=== PATIENT | female | born 1975 | race Caucasian/White ===

== ENCOUNTER 2017-02-01 14:44 | Day surgery (SDC) | payer OTHER ==
[~2017-02-01] VITALS: Ht 162.6 cm; Wt 73.7 kg
--- NOTE | ~2017-02-01 | OR ---
PATIENT'S NAME: CAMRYN STEPHENSON [facility] AGE: 41 Y [address] ROOM: [place] [address] LOCATION: [facility] [place] ADMIT DATE: 02/01/2017 OR/Procedure Report DISCHARGE DATE: FAMILY PHYSICIAN: Tarun Redd ATTENDING PHYSICIAN: Jason Caban SURGEON: Jason Caban MD FISHER LAMPARA NET: Clinton Krishnan PA-C. DATE OF PROCEDURE: 02/01/2017 PREOPERATIVE DIAGNOSIS: Acute appendicitis. POSTOPERATIVE DIAGNOSIS: Acute appendicitis. PROCEDURE PERFORMED: Laparoscopic appendectomy. ANESTHESIA: General endotracheal. ESTIMATED BLOOD LOSS: Less than 5 mL. SPECIMEN: Appendix. REASON FOR PROCEDURE: The patient is a 41-year-old female, who presented with a two-day history of progressive right lower quadrant pain. She had a normal white count, but a CT scan suggested acute appendicitis. We discussed the risks and benefits, and she elected to proceed with appendectomy. FINDINGS: The patient did have a moderately swollen and somewhat injected appendix consistent with acute appendicitis. No perforation. PROCEDURE IN DETAIL: The patient was taken to the Operating Suite and placed in the supine position. After general endotracheal anesthesia was obtained, the abdomen was prepped with ChloraPrep and sterilely draped. Marcaine was infiltrated into the incision sites. A small infraumbilical incision was made in her previous scar. The umbilicus was elevated, and a Veress needle was used to obtain a pneumoperitoneum. A 5- mm trocar was then passed across the abdominal wall. Next, a 5-mm left lower quadrant and 12-mm right lower quadrant trocars were both placed under direct visualization. The appendix was swollen and inflamed. We had to mobilize some peritoneal attachments to free it up completely. The mesoappendix was divided with cautery. We did place a clip across the appendiceal artery. V-Loc clips were then placed across the base of the appendix, and the appendix was divided between them with scissors. The area around the cecum was irrigated, and all irrigation was removed. The trocars were withdrawn and the pneumoperitoneum was evacuated. PATIENT'S NAME: CAMRYN STEPHENSON [facility] AGE: 41 Y [address] ROOM: [place] [address] LOCATION: [facility] [place] ADMIT DATE: 02/01/2017 OR/Procedure Report DISCHARGE DATE: FAMILY PHYSICIAN: Tarun Redd ATTENDING PHYSICIAN: Jason Caban WOUND CLOSURE: The fascia in the right lower quadrant and at the umbilicus was closed with a Vicryl suture. The skin incisions were closed with subcuticular Monocryls. Benzoin, Steri-Strips, and gauze dressings were applied. POST-PROCEDURE PLAN: The patient will be sent to Recovery, and then up to the room. We will gradually advance her diet as tolerated. She will receive pain medicines as necessary. MD BERNARD CARRANZA/mark /[id number] d: 02/01/17 2239 t: 02/08/17 1428, OPERATIVE SUMMARY
--- NOTE | ~2017-02-01 | HP ---
PATIENT'S NAME: CAMRYN STEPHENSON [facility] AGE: 41 Y [address] ROOM: [place] [address] LOCATION: [facility] [place] ADMIT DATE: 02/01/2017 History & Physical DISCHARGE DATE: FAMILY PHYSICIAN: Tarun Redd ATTENDING PHYSICIAN: Jason Caban DATE OF SERVICE: 02/01/2017 CHIEF COMPLAINT: Right lower quadrant abdominal pain. HISTORY OF PRESENT ILLNESS: The patient is a 41-year-old female who began noticing some diffuse abdominal pain on Wednesday evening. It is more of a pressure type pain at that point. Since then, the pain has moved into the right lower quadrant and gotten somewhat worse over time. She has had no nausea or vomiting. She has had no change in bowel habits. She did feel fevers the other day, but did not have a fever earlier today. She finally got feeling severe enough that she went in to be evaluated. She had a normal white count and normal UA. Her lab work and x-rays were unremarkable. A CT scan, however, showed evidence of acute appendicitis. No signs of perforation were noted. She has never had pain like this before. She denies any history of inflammatory bowel disease or Crohn disease. PAST MEDICAL HISTORY: Chronic health problems include hypertension and asthma. ALLERGIES: PENICILLIN, BUT SHE IS NOT SURE WHAT KIND OF REACTION SHE HAS. PREVIOUS SURGERIES: Partial hysterectomy, laparoscopic cholecystectomy, sinus surgery, and knee surgery. MEDICATIONS: 1. Amlodipine. 2. ProAir. 3. Another inhaler. SOCIAL HISTORY: The patient is and has children. She is a nonsmoker. No history of alcohol abuse. FAMILY HISTORY: Noncontributory. PATIENT'S NAME: CAMRYN STEPHENSON [facility] AGE: 41 Y [address] ROOM: [place] [id number] LOCATION: [facility] [place] ADMIT DATE: 02/01/2017 History & Physical DISCHARGE DATE: FAMILY PHYSICIAN: Tarun Redd ATTENDING PHYSICIAN: Jason Caban REVIEW OF SYSTEMS: Does not reveal any abnormalities other than the current pain. PHYSICAL EXAMINATION: GENERAL: The patient is a healthy, well-nourished lady. She is in no obvious distress or discomfort. VITAL SIGNS: Within normal limits. HEENT: Normocephalic, atraumatic. Pupils are equal. There is no scleral icterus. External ears, nose, and eyelids are unremarkable. The oropharynx is clear without lesions or exudate. NECK: Trachea is midline. Breathing is nonlabored. LUNGS: Clear to auscultation without rales, rhonchi, or wheezing. HEART: Regular rate and rhythm. ABDOMEN: Soft, nondistended. There are normoactive bowel sounds. Pressure in the left lower quadrant reproduces some right lower quadrant pain. She has moderate right lower quadrant pain near McBurney point. EXTREMITIES: No peripheral edema. No cyanosis or clubbing. No obvious deformities. She moves all 4 extremities well. LABORATORIES AND DIAGNOSTIC DATA: The patient's lab work and CT scan were reviewed. ASSESSMENT AND PLAN: A 41-year-old female with probable acute appendicitis. I discussed the diagnosis with her. I recommended proceeding with appendectomy. The patient was agreeable. Risks and benefits were all discussed. MD BERNARD CARRANZA/mark /[id number] D: [id number] T: 426 HISTORY & PHYSICAL
[2017-02-01] MEDS ORDERED: SYMBICORT 16010.2 GM INH (15:16)
[2017-02-01] MEDS ORDERED: NORVASC10 MG PO (15:16)
[2017-02-01] MEDS ORDERED: PROAIR HFA8.5 GM INH (15:17)
[2017-02-01] MEDS ORDERED: THERAGRAN-M1 TAB PO (15:18)
--- NOTE | 2017-02-02 04:49 | NUR ---
Significant Event: ARRIVED ON UNIT JUST AT BEGINNING OF SHIFT AFTER LAP APPY. LAP SITES X3. C/O ABDOMINAL PAIN RATING AT 6-7, GAVE 1 NORCO X2 LAST AT 0111 WITH RELIEF NOTED EACH TIME. VSS AND AFEBRILE. HAS BEEN UP AMBULATING IN [place]. IS TOLERATING REGULAR DIET WELL. SALINE LOCKED. IV TO L) HAND. DOES LIKE ICE TO INCISIONAL AREA. HAS ALSO BEEN HAVING DISCOMFORT TO R) SHOULDER AND DID RECOMMEND AMBULATION. SLEPT WELL THROUGH NIGHT. ? DC HOME TODAY. Follow up:
[2017-02-02] MEDS ORDERED: NORCO 5-325 TA1 EACH PO (11:16)
--- NOTE | 2017-02-02 12:29 | NUR ---
PATIENT GIVEN ALL INFORMATION INCLUDING NORCO, LAP APPY, AND INCSION CARES. PATIENT STATED UNDERSTANDING OF ALL TEACHING. ALSO GAVE HER THE DISCHARGE INSTRUCTIONS ON HER NEW MEDICATION. IV WAS TAKEN OUT. VSS ON ROOM AIR. GAVE NORCO PRIOR TO DISCHARGE PAIN 5/10. WALKED PATINET AND TO FRONT DOOR FOR DISCHARGE.
== END 2017-02-02 12:15 | disposition disaster alternative care site (69) ==
LOC: GSDC 14:44 → GMSU 18:02 → GSDC 02-02 12:15
PROC: 0DTJ4ZZ Resection of Appendix, Percutaneous Endoscopic Approach (ICD-10-PCS; principal; 2017-02-01)
DX: K35.80 Unspecified acute appendicitis (principal); I10 Essential (primary) hypertension; J45.909 Unspecified asthma, uncomplicated; Z90.711 Acquired absence of uterus with remaining cervical stump; Z90.49 Acquired absence of other specified parts of digestive tract; Z98.890 Other specified postprocedural states; Z79.899 Other long term (current) drug therapy; Z88.0 Allergy status to penicillin
CPT/HCPCS: J1335; J2001; J3010; J7030; J7120